=== PATIENT | female | born 1970 | race Caucasian/White ===

== ENCOUNTER 2022-05-13 20:58 | Emergency (ER) | payer OTHER ==
--- NOTE | 2022-05-13 21:03 | NUR ---
PT STATED TO WAIT ON TRIAGE, SEEN BY ER MD STATED FOR HIM TO WAIT, SHE IS NOT READY AT THIS TIME
--- NOTE | 2022-05-13 21:15 | NUR ---
PATIENT SEEN BY STAFF LEAVING ED. PATIENT LEFT WITHOUT BEING TRIAGED.
[2022-05-14] MEDS ORDERED: HYDR-3917 PO (07:25)
[2022-05-14] MEDS ORDERED: IBUP-1969 PO (07:25)
== END 2022-05-13 21:15 | disposition left against medical advice (07) ==
LOC: SED 20:58
DX: R07.9 Chest pain, unspecified (principal); Z53.21 Procedure and treatment not carried out due to patient leaving prior to being seen by health care provider